=== PATIENT | female | born 1965 | race Caucasian/White ===

== ENCOUNTER 2018-12-09 22:45 | Emergency (ER) | payer MEDICAID, OTHER ==
[~2018-12-09] VITALS: Ht 162.6 cm; Wt 77.3 kg
[2018-12-09] MEDS ORDERED: HYDROcodone/acetaminophen 10/325mg tab PO ONE (23:10)
[2018-12-09] MEDS ORDERED: vancomycin/NS 1 GM ADD-VANTAGE 250 ML IV ONE (23:10)
[2018-12-09] MEDS ORDERED: ondansetron 4mg rapidly disintigrating tab PO ONE (23:10)
[2018-12-09] MEDS ORDERED: CefTRIAXone 2gm/D5W 50ml 50 ML IV ONE (23:10)
[2018-12-09 23:32] LABS: BASOPHILS # (AUTO) 0.1 X10'3 (0-0.2); EOSINOPHILS # (AUTO) 0.2 X10'3 (0-0.9); EOSINOPHILS % (AUTO) 2.4 % (0-6); HEMATOCRIT 40.1 % (35.0-45.0); HEMOGLOBIN 13.5 g/dl (12.0-16.0); LYMPHOCYTES # (AUTO) 4.5 X10'3 (1.1-4.8); LYMPHOCYTES % (AUTO) 45.6 % (21-51); MEAN CORPUSCULAR HGB CONC 33.8 g/dL (33.0-36.5); MEAN CORPUSCULAR VOLUME 88.7 FL (78-98); MONOCYTES # (AUTO) 0.8 X10'3 (0-0.9); MONOCYTES % (AUTO) 7.6 % (2-12); NEUTROPHILS # (AUTO) 4.3 X10'3 (1.8-7.7); NEUTROPHILS % (AUTO) 43.4 % (42-75); PLATELET COUNT 341 X10'3 (140-440); RED BLOOD COUNT 4.52 X10'6 (4.20-5.60); RED CELL DISTRIBUTION WIDTH 13.2 % (11.5-14.5); WHITE BLOOD COUNT 9.8 X10'3 (4.5-11.0)
[2018-12-09 23:51] LABS: ALANINE AMINOTRANSFERASE 32 U/L (12-78); ALBUMIN 3.5 G/DL (3.4-5.0); ALBUMIN/GLOBULIN RATIO 0.8 (1.1-1.5); ALKALINE PHOSPHATASE 90 IU/L (46-116); ANION GAP 9 (8-16); ASPARTATE AMINO TRANSFERASE 15 U/L (10-37); BILIRUBIN,TOTAL 0.2 MG/DL (0.1-1.0); BLOOD UREA NITROGEN 10 MG/DL (7-18); BUN/CREATININE RATIO 10.3 (6.6-38.0); CALCIUM 9.2 MG/DL (8.5-10.1); CHLORIDE 106 MMOL/L (99-107); CREATININE 0.97 MG/DL (0.40-0.90); GLUCOSE 94 MG/DL (70-104); POTASSIUM 3.8 MMOL/L (3.5-5.1); SODIUM 144 MMOL/L (135-145); TOTAL CARBON DIOXIDE 28.6 MMOL/L (24-32); eGFR 61 ML/MIN
--- NOTE | 2018-12-10 00:20 | NUR ---
PT IS DIFFICULT IV START, ATTEMPTED 3X, NO SUCCESS, ANOTHER RN TO TRY
[2018-12-10] MEDS ORDERED: CEPH-572 PO (01:50)
[2018-12-10] MEDS ORDERED: SULF1TAB49 PO (01:50)
[2018-12-10] MEDS ORDERED: HYDROcodone/acetaminophen 10/325mg tab PO ONE (03:40)
[2018-12-10 03:44] VITALS: BP 113/77
== END 2018-12-10 04:03 | disposition home or self-care (01) ==
LOC: ER 22:46
DX: L03.115 Cellulitis of right lower limb (principal); M79.672 Pain in left foot; Z88.0 Allergy status to penicillin; Z79.899 Other long term (current) drug therapy
CPT/HCPCS: 36415; 73610; 80053; 83735; 84145; 84550; 85025; 96365; 96366; 96367; 99284; J0696; J2405; J3370

== ENCOUNTER 2019-09-18 11:00 | Emergency (ER) | payer MEDICAID ==
[~2019-09-18] VITALS: Ht 160 cm; Wt 77.3 kg
[2019-09-18 12:11] LABS: BASOPHILS # (AUTO) 0.1 X10'3 (0-0.2); BASOPHILS % (AUTO) 0.8 % (0-1); EOSINOPHILS # (AUTO) 0.2 X10'3 (0-0.9); EOSINOPHILS % (AUTO) 1.7 % (0-6); HEMATOCRIT 47.5 % (35.0-45.0); LYMPHOCYTES # (AUTO) 3.7 X10'3 (1.1-4.8); LYMPHOCYTES % (AUTO) 34.3 % (21-51); MEAN CORPUSCULAR HEMOGLOBIN 29.8 PG (27.0-31.0); MEAN CORPUSCULAR HGB CONC 33.7 g/dL (33.0-36.5); MEAN CORPUSCULAR VOLUME 88.5 FL (78-98); MEAN PLATELET VOLUME 8.1 FL (7.4-10.4); MONOCYTES # (AUTO) 0.9 X10'3 (0-0.9); MONOCYTES % (AUTO) 8.6 % (2-12); NEUTROPHILS # (AUTO) 5.9 X10'3 (1.8-7.7); NEUTROPHILS % (AUTO) 54.6 % (42-75); PLATELET COUNT 368 X10'3 (140-440); RED BLOOD COUNT 5.37 X10'6 (4.20-5.60); RED CELL DISTRIBUTION WIDTH 12.7 % (11.5-14.5); WHITE BLOOD COUNT 10.7 X10'3 (4.5-11.0)
[2019-09-18 12:23] LABS: ALANINE AMINOTRANSFERASE 34 U/L (12-78); ALBUMIN 3.5 G/DL (3.4-5.0); ALBUMIN/GLOBULIN RATIO 0.7 (1.1-1.5); ALKALINE PHOSPHATASE 110 IU/L (46-116); ANION GAP 8 (8-16); ASPARTATE AMINO TRANSFERASE 23 U/L (10-37); BILIRUBIN,TOTAL 0.4 MG/DL (0.1-1.0); BLOOD UREA NITROGEN 10 MG/DL (7-18); BUN/CREATININE RATIO 11.2 (6.6-38.0); CHLORIDE 101 MMOL/L (99-107); CREATININE 0.89 MG/DL (0.40-0.90); GLUCOSE 123 MG/DL (70-104); LIPASE 261 U/L (73-393); SODIUM 137 MMOL/L (135-145); TOTAL CARBON DIOXIDE 27.9 MMOL/L (24-32); TOTAL PROTEIN 8.5 G/DL (6.4-8.2); eGFR 67 ML/MIN
[2019-09-18 13:54] LABS: CLARITY,URINE CLOUDY (Clear); COLOR,URINE YELLOW (Yellow); GLUCOSE, URINE NEGATIVE (Neg); KETONES,URINE NEGATIVE (Neg); LEUKOCYTE ESTERASE ,URINE MODERATE (Neg); NITRITES, URINE POSITIVE (Neg); OCCULT BLOOD,URINE LARGE (Neg); PROTEIN,URINE 30 mg/dl (Neg); URINE HCG NEGATIVE (NEG)
[2019-09-18 13:59] LABS: UA COLLECTION TYPE CLN CATCH MIDSTREAM
[2019-09-18 14:03] LABS: WBC,URINE 20-30 /HPF (0-4)
[2019-09-18 14:04] LABS: BACTERIA,URINE 3+ /HPF (Neg); MUCUS STRANDS FEW /LPF (Neg); SQUAMOUS EPITHELIAL CELL,UR MANY /LPF (FEW)
[2019-09-18] MEDS ORDERED: morphine 4 MG/ML inj SYRINge IV ONE (14:35)
[2019-09-18] MEDS ORDERED: ringers solution, lacted 1,000 ML IV ONE (14:40)
[2019-09-18] MEDS ORDERED: CefTRIAXone 2gm/D5W 50ml 50 ML IV ONE (14:45)
[2019-09-18] MEDS ORDERED: CEPH-572 PO (14:53)
[2019-09-18 15:30] LABS: BASOPHILS # (AUTO) 0.1 X10'3 (0-0.2); BASOPHILS % (AUTO) 0.8 % (0-1); EOSINOPHILS # (AUTO) 0.2 X10'3 (0-0.9); EOSINOPHILS % (AUTO) 1.7 % (0-6); HEMATOCRIT 47.2 % (35.0-45.0); LYMPHOCYTES # (AUTO) 3.3 X10'3 (1.1-4.8); LYMPHOCYTES % (AUTO) 29.6 % (21-51); MEAN CORPUSCULAR VOLUME 88.3 FL (78-98); MEAN PLATELET VOLUME 8.1 FL (7.4-10.4); MONOCYTES # (AUTO) 1.2 X10'3 (0-0.9); MONOCYTES % (AUTO) 10.7 % (2-12); NEUTROPHILS # (AUTO) 6.4 X10'3 (1.8-7.7); NEUTROPHILS % (AUTO) 57.2 % (42-75); PLATELET COUNT 361 X10'3 (140-440); RED BLOOD COUNT 5.35 X10'6 (4.20-5.60); RED CELL DISTRIBUTION WIDTH 13.1 % (11.5-14.5); WHITE BLOOD COUNT 11.2 X10'3 (4.5-11.0)
[2019-09-18] MEDS ORDERED: normal saline 1000ml 1,000 ML IV ONE (15:35)
[2019-09-18] MEDS ORDERED: mag hydrox/Alum hydrox/simeth 30ml oral suspension PO ONE (15:40)
[2019-09-18] MEDS ORDERED: famotidine/PF 10 mg/ml inj IV ONE (15:40)
[2019-09-18] MEDS ORDERED: LORazepam 2 mg/ml vial IV ONE (15:40)
[2019-09-18 17:12] VITALS: BP 171/95
[2019-09-19] MEDS ORDERED: CefTRIAXone 2gm/D5W 50ml 50 ML IV SCH (08:00)
== END 2019-09-18 17:13 | disposition home or self-care (01) ==
LOC: ER 11:01
DX: N12 Tubulo-interstitial nephritis, not specified as acute or chronic (principal); R10.84 Generalized abdominal pain; Z88.0 Allergy status to penicillin
CPT/HCPCS: 36415; 80053; 81001; 81025; 83690; 85025; 96365; 96375; 99285; J0696; J2060; J2270; J3490; J7030

== ENCOUNTER 2020-10-05 18:19 | Emergency (ER) | payer MEDICAID | END 2020-10-05 20:36 | disposition left against medical advice (07) | LOC: ER 18:20 | DX: R60.0 Localized edema (principal); Z53.21 Procedure and treatment not carried out due to patient leaving prior to being seen by health care provider ==

== ENCOUNTER 2022-02-25 13:55 | Emergency (ER) | payer MEDICAID ==
[~2022-02-25] VITALS: Ht 157.5 cm; Wt 76.0 kg
[2022-02-25 14:45] VITALS: BP 128/82
--- NOTE | 2022-02-25 15:45 | NUR ---
Seen and discharged by provider.
== END 2022-02-25 15:46 | disposition home or self-care (01) ==
LOC: ER 13:56
DX: Z00.8 Encounter for other general examination (principal); F32.A Depression, unspecified; F15.90 Other stimulant use, unspecified, uncomplicated; Z88.0 Allergy status to penicillin
CPT/HCPCS: 99281

== ENCOUNTER 2023-03-15 20:55 | Emergency (ER) | payer MEDICAID ==
[~2023-03-15] VITALS: Ht 165.1 cm; Wt 79.5 kg
[2023-03-15 20:56] VITALS: BP 164/98; PULSE 109; RESP 16; TEMP 98.9; O2SAT 99
--- NOTE | 2023-03-15 21:22 | NUR ---
PT LWOBS, PT AND PTS TRISTON STATED ON WAY OUT " SHE DIDNT COME TO SEE THE DOCTOR."
== END 2023-03-15 21:23 | disposition left against medical advice (07) ==
LOC: ER 20:56
DX: R10.9 Unspecified abdominal pain (principal); Z53.21 Procedure and treatment not carried out due to patient leaving prior to being seen by health care provider
CPT/HCPCS: 99281

== ENCOUNTER 2024-08-18 15:27 | Emergency (ER) | payer MEDICAID ==
[~2024-08-18] VITALS: Ht 160 cm; Wt 79.8 kg
[2024-08-18 15:35] VITALS: BP 137/74; PULSE 99; O2SAT 95
[2024-08-18] MEDS ORDERED: NAPR-1168 PO (16:18)
[2024-08-18 16:41] VITALS: RESP 16
[2024-08-18] MEDS: ketorolac trometh 15mg/ml vial 15 MG/ML ML IM ONE (16:41)
[2024-08-18 16:58] VITALS: TEMP 98.9
== END 2024-08-18 16:59 | disposition home or self-care (01) ==
LOC: ER 15:28
DX: M25.572 Pain in left ankle and joints of left foot (principal); M25.571 Pain in right ankle and joints of right foot; M25.561 Pain in right knee; M25.562 Pain in left knee; Z88.0 Allergy status to penicillin
CPT/HCPCS: 96372; 99283; J1885; A6449